=== PATIENT | female | born 1990 | race Caucasian/White ===

== ENCOUNTER 2018-10-17 10:56 | Inpatient (IN) | payer OTHER ==
[2018-10-17] MEDS ORDERED: MISOPROSTOL 200 MCG TAB PR ×2 (12:00→17:00)
[2018-10-17] MEDS ORDERED: IBUPROFEN 600 MG TAB PO (12:00)
[2018-10-17] MEDS ORDERED: OXYTOCIN 30 UNITS/LR 500 ML IV ×2 (12:00→17:00)
[2018-10-17] MEDS ORDERED: CARBOPROST 250 MCG INJ IM ×2 (12:00→17:00)
[2018-10-17] MEDS ORDERED: METHYLERGONOVINE 0.2 MG INJ IM ×2 (12:00→17:00)
[2018-10-17] MEDS ORDERED: LIDOCAINE 1% (MPF) 30 ML INJ INJ (12:00)
[2018-10-17] MEDS ORDERED: BUTORPHANOL 2 MG INJ IV (12:00)
[2018-10-17] MEDS: LACTATED RINGER'S 1,000 ML IV (12:23)
[2018-10-17 12:35] LABS: ADD MAN DIFF? NO
[2018-10-17 12:42] LABS: WHITE BLOOD COUNT 14.8 10^3/ul (4.8-10.8)
[2018-10-17 12:42] LABS: BASOPHIL # 0.1 10^3/ul (0.0-0.1); BASOPHILS % 0.3 % (0.0-2.0); EOSINOPHILS % 0.2 % (0.0-7.0); HEMATOCRIT 38.6 % (37.0-47.0); HEMOGLOBIN 12.8 g/dl (12.0-16.0); LYMPHOCYTES # 1.8 10^3/ul (0.8-2.9); MEAN CORPUSCULAR HEMOGLOBIN 29.6 pg (29.0-33.0); MEAN CORPUSCULAR HGB CONC 33.2 g/dl (32.0-37.0); MEAN CORPUSCULAR VOLUME 89.1 fl (82.0-101.0); MEAN PLATELET VOLUME 10.6 fl (7.4-10.4); MONOCYTE # 0.7 10^3/ul (0.3-0.9); MONOCYTES % 4.7 % (0.0-11.0); NEUTROPHIL # 12.2 10^3/ul (1.6-7.5); NEUTROPHILS % 82.1 % (39.0-77.0); PLATELET COUNT 280 10^3/UL (140-415); RED BLOOD COUNT 4.33 10^6/ul (4.20-5.40); RED CELL DISTRIBUTION WIDTH 13.2 % (11.5-14.5)
[2018-10-17 12:58] LABS: INR 0.91; PROTIME 12.4 Sec (11.9-14.9)
[2018-10-17 12:59] LABS: PARTIAL THROMBOPLASTIN TIME 25.8 Sec (23.0-35.0)
[2018-10-17] MEDS ORDERED: FENTAnyl 2MCG/ML-ROPIV 0.2% 100 ML (13:08)
[2018-10-17 13:36] LABS: HEPATITIS B SURFACE ANTIGEN NEGATIVE (NEGATIVE)
[2018-10-17] MEDS ORDERED: FENTAnyl 2MCG/ML-ROPIV 0.2% 100 ML BAG EPI (14:30)
[2018-10-17] MEDS ORDERED: NALOXONE (0.4 MG/ML) INJ IV (14:30)
[2018-10-17] MEDS ORDERED: ONDANSETRON 4 MG INJ IV (14:30)
[2018-10-17] MEDS: OXYTOCIN 30 UNITS/LR 500 ML IV ×3 (16:33→21:53)
[2018-10-17] MEDS ORDERED: HYDROCODONE/APAP (5/325) TAB PO (17:00)
[2018-10-17] MEDS: IBUPROFEN 600 MG TAB PO (18:00)
[2018-10-17] MEDS: LACTATED RINGER'S 1,000 ML IV* (18:20)
[2018-10-17 21:39] LABS: RAPID PLASMA REAGIN NONREACTIVE (NR)
[2018-10-17] MEDS: BENZOCAINE 20% 56 ML SPRAY TOP (21:55)
[2018-10-18] MEDS: IBUPROFEN 600 MG TAB PO ×5 (00:06→23:36)
[2018-10-18] MEDS: LACTATED RINGER'S 1,000 ML IV* ×3 (01:00→17:00)
[2018-10-18] MEDS: OXYTOCIN 30 UNITS/LR 500 ML IV (03:00)
[2018-10-18 07:30] LABS: ADD MAN DIFF? NO
[2018-10-18 07:34] LABS: BASOPHIL # 0.1 10^3/ul (0.0-0.1); BASOPHILS % 0.3 % (0.0-2.0); EOSINOPHILS # 0.1 10^3/ul (0.0-0.5); EOSINOPHILS % 0.4 % (0.0-7.0); HEMATOCRIT 31.6 % (37.0-47.0); HEMOGLOBIN 10.6 g/dl (12.0-16.0); LYMPHOCYTES % 16.4 % (15.0-51.0); MEAN CORPUSCULAR HEMOGLOBIN 30.2 pg (29.0-33.0); MEAN CORPUSCULAR HGB CONC 33.5 g/dl (32.0-37.0); MEAN PLATELET VOLUME 10.5 fl (7.4-10.4); MONOCYTE # 1.4 10^3/ul (0.3-0.9); MONOCYTES % 7.3 % (0.0-11.0); NEUTROPHIL # 13.8 10^3/ul (1.6-7.5); NEUTROPHILS % 74.9 % (39.0-77.0); PLATELET COUNT 214 10^3/UL (140-415); RED BLOOD COUNT 3.51 10^6/ul (4.20-5.40); RED CELL DISTRIBUTION WIDTH 13.3 % (11.5-14.5)
[2018-10-18 07:34] LABS: WHITE BLOOD COUNT 18.5 10^3/ul (4.8-10.8)
[2018-10-18] MEDS: LANOLIN HPA 1 PKT TOP (08:02)
[2018-10-19] MEDS: IBUPROFEN 600 MG TAB PO ×2 (05:34→11:36)
[2018-10-19 11:21] LABS: WHITE BLOOD COUNT 12.8 10^3/ul (4.8-10.8)
[2018-10-19] MEDS: DIPHTH/TET/ACEL PERTUSS (ADULT) 0.5 ML VIAL IM* (11:37)
[2018-10-19] MEDS: MEASLES,MUMPS,RUBELLA VACCINE INJ SC* (14:14)
== END 2018-10-19 16:21 | disposition home or self-care (01) | DRG 807 ==
LOC: OBT 10:56 → L-D 10:56 → OBT 11:45 → L-D 11:45 → PP1 18:01
PROVIDERS: Obstetrics & Gynecology
PROC: 10E0XZZ Delivery of Products of Conception, External Approach (ICD-10-PCS; principal; 2018-10-17)
PROC: 0KQM0ZZ Repair Perineum Muscle, Open Approach (ICD-10-PCS; 2018-10-17)
DX: O70.1 Second degree perineal laceration during delivery (principal); Z37.0 Single live birth; Z3A.37 37 weeks gestation of pregnancy; O69.81X0 Labor and delivery complicated by cord around neck, without compression, not applicable or unspecified
CPT/HCPCS: 62322; 85025; 85048; 85610; 85730; 86592; 86850; 86900; 86901; 87340; 90715; 99464